=== PATIENT | female | born 1995 | race Caucasian/White ===

== ENCOUNTER 2017-11-03 12:28 | Emergency (ER) | payer OTHER ==
[~2017-11-03] VITALS: Ht 175.3 cm; Wt 77.1 kg
[2017-11-03 13:03] VITALS: BP 157/80
[2017-11-03] MEDS ORDERED: ACETAMINOPHEN 325 MG TAB PO ONE (15:40)
[2017-11-03 16:41] VITALS: BP 155/78
== END 2017-11-03 16:40 | disposition home or self-care (01) ==
LOC: MED 12:28
DX: G51.0 Bell's palsy (principal)
CPT/HCPCS: 70450; 99284